=== PATIENT | male | born 1950 | race Caucasian/White ===

== ENCOUNTER 2020-06-17 11:38 | Outpatient (REF) | payer MEDICARE, SELFPAY ==
[2020-06-17 13:58] LABS: MANUAL DIFF FLAG NO
[2020-06-17 14:03] LABS: Basophils Percent Auto 0.6 % (0-2); Eosinophils Absolute Auto 0.1 X10*3/uL (0.0-0.4); Eosinophils Percent Auto 2.4 % (0-4); Hematocrit 44.8 % (42-52); Hemoglobin 15.1 g/dl (14.0-18.0); Imm Gran Abs Auto 0.03 X10*3/uL (0.00-0.03); Imm Gran Pct Auto 0.6 % (0.0-0.4); Lymphocytes Absolute Auto 1.4 X10*3/uL (1.2-4.9); Lymphocytes Percent Auto 27.2 % (20-40); Mean Corpuscular HGB Conc 33.7 g/dl (31.0-36.0); Mean Corpuscular Hemoglobin 29.3 pg (27.0-33.0); Mean Corpuscular Volume 86.8 fL (80-98); Mean Platelet Volume 11.2 fL (9.4-12.4); Monocytes Absolute Auto 0.4 X10*3/uL (0.1-1.2); Monocytes Percent Auto 7.8 % (2-11); Neutrophils Absolute Auto 3.1 X10*3/uL (2.0-8.3); Neutrophils Percent Auto 61.4 % (45-73); Platelet Count 202 X10*3/uL (160-400); Red Blood Count 5.16 X10*6/uL (4.60-5.80); Red Cell Distribution Width 12.8 % (11.0-16.0)
[2020-06-17 14:08] LABS: Glucose Urine UA NEG (NEG); Leukocyte Esterase Urine NEG (NEG); Nitrite Urine NEG (NEG); Urine Blood NEG (NEG); Urine Ketones NEG (NEG); Urine Protein NEG (NEG-TRACE)
[2020-06-17 14:09] LABS: Appearance Urine CLEAR; Color Urine YELLOW
[2020-06-17 14:34] LABS: Alanine Aminotransferase 15 U/L (0-40); Albumin Level 4.3 g/dL (3.5-5.0); Alkaline Phosphatase 51 U/L (39-117); Anion Gap 11 (12-20); Aspartate Amino Transferase 23 U/L (5-37); Bilirubin Total 1.3 mg/dL (0.0-1.0); Blood Urea Nitrogen 13 mg/dL (9-16); Carbon Dioxide 28 mmol/L (22-29); Chloride 106 mmol/L (96-108); Cholesterol 174 mg/dL; Estimated Glomerular Filt Rate > 60; Glucose Fasting 75 mg/dL (60-99); HDL Cholesterol 37 mg/dL; LDL Cholesterol Calculated 123 mg/dl; Potassium 4.7 mmol/l (3.3-5.1); Sodium 140 mmol/L (135-145); Total Protein 6.7 g/dL (6.5-8.0); Triglycerides 70 mg/dL
[2020-06-17 14:56] LABS: Prostate Specific Antigen Scr 0.52 ng/mL (<0.05-4.0)
== END 2020-06-17 11:39 | disposition home or self-care (01) ==
LOC: HO.HMGCLDS 11:38
PROVIDERS: PCP Internal Medicine; Visit Provider Internal Medicine
DX: I10 Essential (primary) hypertension (principal); R35.1 Nocturia; E78.5 Hyperlipidemia, unspecified
CPT/HCPCS: 36415; 80053; 80061; 81003; 84153; 85025

== ENCOUNTER 2020-06-18 08:15 | Day surgery (SDC) | payer MEDICARE, SELFPAY ==
[2020-06-13 12:56] VITALS: BMI 25.7
--- NOTE | 2020-06-17 11:06 | HO.ANESPROP2 ---
Documented by User: Vanessa Powell 06/17/20 11:07 HPI - Anesthesia Eval Consult details Narrative: 70yo M for Colonoscopy [facility] Past Medical History Medical History Arthritis Depression HTN (hypertension) Surgical History Surgical History History of cholecystectomy Hx of appendectomy Hx of arthroscopy of right knee Hx of colonoscopy Social History Social History Alcohol intake: current Alcohol intake frequency: a few times a month Smoking Status: Former smoker Smoking Quit Date: Use of substances other than those prescribed or required for medical reasons: No Advance Directives: No Advance Directives Information Provided: No Advance Directives on File: No Meds Allergies Allergy/AdvReac Type Severity Reaction Status Date / Time oxycodone [OXYCODONE] Allergy Unknown ITCHY, Verified 06/13/20 11:53 THROAT SWELLING Home Medications Medication Instructions Recorded Confirmed Type atenolol 1 tab PO DAILY 06/13/20 06/13/20 History citalopram 1 tab PO DAILY 06/13/20 06/13/20 History citalopram 1 tab PO DAILY 06/13/20 06/13/20 History clonidine 1 patch TOPICAL QWEEK 06/13/20 06/13/20 History lisinopril 1 tab PO DAILY 06/13/20 06/13/20 History Exam Exam Date and Time: June 17, 2020 1106 Height,Weight and Vital Signs: Height 5 ft 11 in Weight 83.915 kg Assessment and Plan Assessment Anesthesia Assessment: Chart Reviewed Documented by User: Ashia Riley 06/18/20 08:55 [facility] Past Medical History Medical History Arthritis Depression HTN (hypertension) Family History Family history of problems with anesthesia: No Surgical History Surgical History History of cholecystectomy Hx of appendectomy Hx of arthroscopy of right knee Hx of colonoscopy History of Problems with Anesthesia: No Social History Social History Alcohol intake: current Alcohol intake frequency: a few times a month Smoking Status: Former smoker Smoking Quit Date: Use of substances other than those prescribed or required for medical reasons: No Advance Directives: No Advance Directives Information Provided: No Advance Directives on File: No Meds Allergies Allergy/AdvReac Type Severity Reaction Status Date / Time oxycodone [OXYCODONE] Allergy Unknown ITCHY, Verified 06/13/20 11:53 THROAT SWELLING Home Medications Medication Instructions Recorded Confirmed Type atenolol 1 tab PO DAILY 06/13/20 06/13/20 History citalopram 1 tab PO DAILY 06/13/20 06/13/20 History citalopram 1 tab PO DAILY 06/13/20 06/13/20 History clonidine 1 patch TOPICAL QWEEK 06/13/20 06/13/20 History lisinopril 1 tab PO DAILY 06/13/20 06/13/20 History Exam Airway Mallampati Class: III TM Dist: >3cm Neck ROM: Full Loose/Missing/Broken Teeth: Yes (Poor dentition. Many broken and missing.) Heart: RRR Lungs: CTAB Assessment and Plan Assessment Anesthesia Assessment: Anesthesia Plan Discussed and Smoking Cess. Discussed Final Anesthetic Review NPO: Yes ASA Class: II Final Preanesthetic Review: No Changes in Pt Med Stat, Meds/Allgs Chart Reviewed, Consent Obtained/Reviewed and Anes Risks/Benef Reviewed Patient Risk: Low Procedure Risk: Low Anesthetic Plan Anesthetic Plan: MAC: Disposition: Standard PACU
[2020-06-18 08:25] VITALS: BP 158/103; PULSE 56; RESP 16; TEMP 36.6; O2SAT 98
[2020-06-18] MEDS: Lactated Ringers 1,000 ML 100 ML IVCONT (09:03)
[2020-06-18 10:06] VITALS: BP 143/88; PULSE 70; RESP 16; TEMP 36.4; O2SAT 99
--- NOTE | 2020-06-18 10:09 | PM.OP ---
Brief Operative Note Date of procedure: 06/18/20 Pre-op diagnosis: Screening Post-op diagnosis: other (Colon polyps, Diverticulosis, Internal hemorrhoids) Procedure: Colonoscopy to cecum and TI with biopsy and removal of polyps Surgeon: Drake Wu Anesthesia: MAC Estimated blood loss (mL): 3.0 Pathology: other (A. Cecal polyp B. Ascending colon polyp) Condition: stable Disposition: PACU
[2020-06-18 10:21] VITALS: BP 134/86; PULSE 57; RESP 13; TEMP 36.4; O2SAT 100
--- NOTE | 2020-06-18 10:44 | OP_ITS ---
SURGEON: Drake Wu MD INDICATIONS: The patient presents for evaluation of colorectal cancer screening. Full consent was obtained from him for this, including risks of bleeding and perforation. PREOPERATIVE DIAGNOSIS: Colorectal cancer screening. POSTOPERATIVE DIAGNOSIS: PROCEDURE PERFORMED: Colonoscopy to cecum and terminal ileum with biopsy and removal of polyps. ESTIMATED BLOOD LOSS: COMPLICATIONS: ANESTHESIA: Monitored anesthesia care. ASSISTANTS: SPECIMENS: POSTOPERATIVE DIAGNOSES: Colorectal cancer screening, small colon polyps, diverticulosis and internal hemorrhoids. DESCRIPTION OF PROCEDURE: The patient was placed in the left lateral decubitus position. The digital rectal exam revealed no abnormalities. The Olympus video pediatric colonoscope was entered into the rectum and advanced easily to the cecum. Once in the cecum, I did identify normal-appearing cecal pouch other than a 3 or 4 mm polyp, which was biopsied and completely removed with a cold biopsy forceps. The remainder of the cecum appeared normal. The terminal ileum was cannulated and appeared normal. The scope was withdrawn back in the colon. The scope was slowly withdrawn assessing all mucosal surfaces carefully. Preparation was excellent. In the proximal ascending colon, was a flat 3 or 4 mm polyp, which was biopsied and completely removed with a cold biopsy forceps. I did not visualize any other polyps, colitis, nor angiodysplasia. There was a mild amount of sigmoid diverticulosis. In the rectum, the scope was retroflexed, visualizing small internal hemorrhoids, but no other pathology. The rectal mucosa appeared normal. The scope was straightened out and withdrawn from the patient. He tolerated the procedure well and was returned to the recovery area in stable condition. IMPRESSION: 1. Small colon polyps, status post biopsy removal. 2. Diverticulosis. 3. Internal hemorrhoids. PLAN: The results of biopsies will be checked. If these are tubular adenoma, I would recommend a followup colonoscopy in 5 years for further screening. If they are only hyperplastic, then he may very well not need any further screening colonoscopies given his age of 70. He will otherwise see me on a p.r.n. basis. MD NORA Kuo/MICK / [phone]
== END 2020-06-18 11:10 | disposition home or self-care (01) ==
PROVIDERS: PCP Internal Medicine; Visit Provider Internal Medicine
PROC: 0DJD8ZZ Inspection of Lower Intestinal Tract, Via Natural or Artificial Opening Endoscopic (ICD-10-PCS; CPT 45378; principal; 2020-06-18 09:30)
DX: Z12.11 Encounter for screening for malignant neoplasm of colon (principal); D12.0 Benign neoplasm of cecum; D12.2 Benign neoplasm of ascending colon; K57.30 Diverticulosis of large intestine without perforation or abscess without bleeding; K64.8 Other hemorrhoids; I10 Essential (primary) hypertension; F32.9 Major depressive disorder, single episode, unspecified; Z90.49 Acquired absence of other specified parts of digestive tract; Z87.891 Personal history of nicotine dependence; Z88.8 Allergy status to other drugs, medicaments and biological substances
CPT/HCPCS: 45380; 88305

== ENCOUNTER 2020-08-21 14:23 | Outpatient (REF) | payer MEDICARE, SELFPAY ==
[2020-08-21 15:20] LABS: Influenza A PCR NEGATIVE (Negative); Influenza B PCR NEGATIVE (Negative); Resp Syncy Virus RNA Qual PCR NEGATIVE (Negative); SARS COV2 PCR INHOUSE POSITIVE (Negative)
== END 2020-08-21 14:24 | disposition home or self-care (01) ==
LOC: HO.LNP 14:23
PROVIDERS: Visit Provider Internal Medicine
DX: Z20.822 Contact with and (suspected) exposure to COVID-19 (principal); R51.9 Headache, unspecified; R50.9 Fever, unspecified
CPT/HCPCS: 0241U

== ENCOUNTER → 2021-01-15 10:22 | Outpatient (BNVA) | payer SELFPAY | PROVIDERS: PCP Internal Medicine; Visit Provider Internal Medicine | DX: Z02.79 Encounter for issue of other medical certificate (principal) ==

== ENCOUNTER 2022-01-22 06:40 | Outpatient (REF) | payer MEDICARE, SELFPAY ==
[2022-01-22 11:29] LABS: Appearance Urine CLEAR; Color Urine YELLOW; Glucose Urine UA NEG (NEG); Leukocyte Esterase Urine NEG (NEG); Nitrite Urine NEG (NEG); PH 6.5 (5.0-8.0); Urine Blood NEG (NEG); Urine Ketones NEG (NEG); Urine Protein NEG (NEG-TRACE)
[2022-01-22 11:37] LABS: MANUAL DIFF FLAG NO
[2022-01-22 12:08] LABS: Eosinophils Absolute Auto 0.1 X10*3/uL (0.0-0.4); Eosinophils Percent Auto 3.2 % (0-4); Hematocrit 43.3 % (42.0-52.0); Hemoglobin 14.5 g/dl (14.0-18.0); Imm Gran Abs Auto 0.03 X10*3/uL (0.00-0.03); Imm Gran Pct Auto 0.7 % (0.0-0.4); Lymphocytes Absolute Auto 1.1 X10*3/uL (1.2-4.9); Lymphocytes Percent Auto 26.8 % (20-40); Mean Corpuscular HGB Conc 33.5 g/dl (31.0-36.0); Mean Corpuscular Hemoglobin 28.9 pg (27.0-33.0); Mean Corpuscular Volume 86.3 fL (80.0-98.0); Mean Platelet Volume 11.3 fL (9.4-12.4); Monocytes Absolute Auto 0.3 X10*3/uL (0.1-1.2); Monocytes Percent Auto 7.6 % (2-11); Neutrophils Absolute Auto 2.5 x10*3/uL (2.0-8.3); Neutrophils Percent Auto 60.7 % (45-73); Platelet Count 200 X10*3/uL (160-400); Red Blood Count 5.02 X10*6/uL (4.60-5.80); White Blood Count 4.1 X10*3/uL (4.8-10.8)
[2022-01-22 12:16] LABS: Alanine Aminotransferase 18 U/L (0-40); Albumin Level 4.1 g/dL (3.5-5.0); Alkaline Phosphatase 46 U/L (39-117); Anion Gap 10 (12-20); Aspartate Amino Transferase 20 U/L (5-37); Bilirubin Total 0.9 mg/dL (0.0-1.0); Blood Urea Nitrogen 17 mg/dL (9-16); Calcium 9.4 mg/dL (8.4-10.2); Carbon Dioxide 26 mmol/L (22-29); Chloride 108 mmol/L (96-108); Cholesterol 193 mg/dL; Estimated Glomerular Filt Rate > 60; Glucose Fasting 103 mg/dL (60-99); HDL Cholesterol 38 mg/dL; LDL Cholesterol Calculated 139 mg/dl; Potassium 4.5 mmol/L (3.3-5.1); Sodium 139 mmol/L (135-145); Total Protein 6.6 g/dL (6.5-8.0); Triglycerides 80 mg/dL
[2022-01-22 12:41] LABS: Prostate Specific Antigen Scr 0.46 ng/mL (<0.05-4.0)
== END 2022-01-22 06:41 | disposition home or self-care (01) ==
LOC: HO.HMGCLDS 06:40
PROVIDERS: PCP Internal Medicine; Visit Provider Internal Medicine
DX: I10 Essential (primary) hypertension (principal); E78.00 Pure hypercholesterolemia, unspecified; R35.1 Nocturia; Z12.5 Encounter for screening for malignant neoplasm of prostate
CPT/HCPCS: 36415; 80053; 80061; 81003; 84153; 85025

== ENCOUNTER → 2023-10-28 07:39 | Outpatient (REF) | payer MEDICARE, SELFPAY ==
--- NOTE | 2023-10-28 07:47 | CA_ITS ---
Acquisition Time: 2023-10-28 08:03:44 Total Exercise Time: 00:11:01 Test Indications: CP Medications: SEE H Protocol: ROEL Max HR: 129 BPM 87% of Pred: 148 BPM Max BP: 170/090 mmHG Max Work Load: 13.4 METS PT EXERCISED ON STD ROEL PROTOCOL FOR 11 MIN INTO STAGE 4. MAX HR 129-87%MAX. 3/10 CHEST PRESSURE WITH PEAK EXERCISE. RESOLVED BY 6 MIN OF RECOVERY.. NML BP RESPONSE. CLINICALLY EQUIVOCAL, ELEC NEG. Referred By: Salo Oleary Overread By: MARGUERITE OLEARY MD
== END ==
LOC: HO.CARD 07:39
PROVIDERS: PCP Internal Medicine; Visit Provider Internal Medicine
DX: R07.9 Chest pain, unspecified (principal)
CPT/HCPCS: 93017

== ENCOUNTER 2024-02-13 10:07 | Outpatient (AMB) | payer MEDICARE, SELFPAY ==
--- NOTE | 2024-02-13 10:08 | MHC.OFFVIS ---
Vital Signs 02/13/24 10:10 Height 5 ft 11 in Weight 180 lb 5.41 oz BMI 25.1 Blood Pressure Location Lt brachial Position Sitting Intake Visit Reasons: [employer]/Dr. aLzar/Exertional chest pain Intake Note: [employer]. Pt states is having some chest discomfort. Approx 10 minutes. 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 He has a pleasant 73-year-old male since last 4-5 months been having symptoms of exertional chest discomfort. Describes a pressure in his chest in the retrosternal area when he is mowing his lawn. The associated with lightheadedness. He has to stop mowing his lawn and rest and symptoms subsided within 5-10 minutes. He then can proceed with mowing his lawn again and would get symptoms similar again. The symptoms have been more or less consistent with exertional activity. He also describes left-sided chest pain which is not similar to his retrosternal chest pressure but is present mostly at rest. He has concerned about the symptoms. This has limited his exercise activity and his functionality. He underwent a stress test in October very performed high level of workload with symptoms similar to his angina but without any EKG changes of ischemia. His peak blood pressure at that time was 170/90. He is noted occasionally his blood pressure to be elevated at home. Although blood pressure are highly variable. He does have family history of coronary artery disease with father having NM at age 71. He also has history of hyperlipidemia with last LDL of 139 mg/dL. He has never had any prior vascular events including myocardial infarction. Ex-smoker does not currently smoke. Denies any lightheadedness or syncope without these activity. Denies any prolonged palpitation irregular heartbeat. No heart failure symptoms. [facility] Medical History Arthritis Depression HTN (hypertension) Surgical History Hx of appendectomy History of cholecystectomy Hx of arthroscopy of right knee Hx of colonoscopy Family History Father Heart problem Social History Alcohol intake: current Alcohol intake frequency: a few times a month Patient Tobacco Use Status: Former Tobacco user Review of Systems Const Reports chills, Reports daytime sleepiness, Reports fatigue, Reports fever(s), Reports frequent falls, Reports poor appetite, Reports snoring, Reports stops breathing during sleep, Reports weakness, Reports weight gain and Reports weight loss Eyes Reports loss of vision ENT Reports dizziness and Reports hearing loss Card Reports chest pain, Reports claudication, Reports leg edema, Reports lightheadedness, Reports palpitations, Reports dyspnea, Reports dyspnea on exertion and Reports orthopnea Resp Reports cough, Reports excessive phlegm production, Reports dyspnea, Reports dyspnea on exertion, Reports snoring and Reports wheezing GI Reports abdominal pain, Reports hematochezia, Reports change in bowel habits, Reports nausea and Reports vomiting Reports dysuria and Reports urinary frequency Musc Reports arthralgias, Reports muscle weakness and Reports numbness Skin/Breast Reports nail changes and Reports rash Neuro Reports Abnormal speech present, Reports dizziness, Reports frequent falls, Reports loss of vision, Reports memory loss, Reports numbness and Reports weakness Psych Reports depression and Reports memory loss Endo Reports fatigue and Reports palpitations Bc/Lymph Reports easy bruising Aller/Immun Reports wheezing Physical Exam Vital Signs: BMI result Body Mass Index 25.1 Const General: cooperative, comfortable, no acute distress, alert, awake and Physically active Nutritional Appearance: average body habitus Orientation/consciousness: patient oriented x3 Limitations: no limitations HEENT Head: Yes normocephalic and Yes atraumatic Neck Neck: Yes trachea midline, Yes supple and Yes no JVD Resp Effort & Inspection: normal respiratory effort Auscultation: clear to auscultation bilaterally Cardio Jugular venous distension: no JVD Palpation: normal PMI Rate: regular rate Rhythm: regular rhythm Heart sounds: S1 normal heart sound present, S2 normal heart sound present, no click, no gallops, no murmurs and no rubs GI Auscultation: normal bowel sounds Skin General skin exam: no rashes or lesions noted Neuro General: patient oriented x3 and no focal motor deficits Speech: Abnormal speech present Extrem General: Yes no clubbing, cyanosis or edema Psych Appearance: grossly normal Office Procedures EKG Details: EKG shows sinus bradycardia at 58 beats per minute with normal EKG [id number], Complete Assessment & Plan Assessment & Plan (1) Exertional chest pain: Code(s): R07.9 - Chest pain, unspecified Category: Medical Plan: Exertional chest pain in this elderly gentleman with multiple risk factors including age, hypertension, family history, hyperlipidemia are highly suggestive of obstructive coronary artery disease although his stress test done in early October was at high workload with symptoms were positive with negative EKG. Possibility of branch vessel or circumflex disease. However symptoms are concerning and limiting his lifestyle. Would suggest further evaluation with angiographic method. We suggested noninvasive versus invasive angiography. Will pursue coronary CTA for further evaluation of coronary artery disease. Other differential diagnose include exercise-induced hypertension and noticed to have elevated blood pressure today and/or pulmonary hypertension and/or left ventricular hypertrophy. Will obtain echocardiogram in near future. Meanwhile start him on low-dose amlodipine both as an antianginal antihypertensive therapy. Also recommend statin therapy with atorvastatin 40 mg daily to target goal LDL less than 70 mg/dL and low-dose aspirin therapy. Further treatment based on the findings of the coronary CTA. (2) HTN (hypertension): Code(s): I10 - Essential (primary) hypertension Category: Medical Plan: Hypertension with today noted to have elevated blood pressure. Possibly can cause exertional angina with elevated blood pressure with exertional activity. Advised to continue monitor blood pressure at home maintain a log. Will start on low-dose amlodipine for control his blood pressure. Low-salt diet was discussed. Advised stress mitigation strategies. Target goal blood pressure less than 130/84 at all times. Follow up in the clinic after testing. Thank you for allowing me to partake in his care Orders: Orders Basic Metabolic Panel Today R07.9 - Chest pain, unspecified CT Cardiac Coronary Angio 1 Week R07.9 - Chest pain, unspecified CA echo transthoracic complete Today R07.9 - Chest pain, unspecified Medications: New aspirin (Ecotrin Low Strength) 81 mg PO DAILY 30 tabs 5RF R07.9 - Chest pain, unspecified amlodipine 2.5 mg PO DAILY 30 tabs 5RF R07.9 - Chest pain, unspecified atorvastatin 40 mg PO DAILY 30 tabs 5RF R07.9 - Chest pain, unspecified Coding Level of Care Code New Pt Level 4 (48186) Diagnoses Exertional chest pain R07.9 HTN (hypertension) I10 CPT Codes EKG - CPT: 87080-[id number], Complete ([id number])
[2024-02-13 10:10] VITALS: BMI 25.1
== END 2024-02-13 10:40 | disposition home or self-care (01) ==
PROVIDERS: PCP Internal Medicine; Visit Provider Internal Medicine Cardiovascular Disease
DX: R07.9 Chest pain, unspecified (principal); I10 Essential (primary) hypertension
CPT/HCPCS: 93010; 99204

== ENCOUNTER 2024-02-13 10:07 | Outpatient (REF) | payer MEDICARE, SELFPAY ==
[2024-02-13 12:37] LABS: Anion Gap 11 (12-20); Blood Urea Nitrogen 15 mg/dL (9-16); Calcium 10.2 mg/dL (8.4-10.2); Carbon Dioxide 27 mmol/L (22-29); Chloride 108 mmol/L (96-108); Estimated Glomerular Filt Rate > 60; Glucose Random 97 mg/dL (60-115); Potassium 5.1 mmol/L (3.3-5.1); Sodium 141 mmol/L (135-145)
== END 2024-02-13 10:08 | disposition home or self-care (01) ==
LOC: HO.LAB 10:07
PROVIDERS: PCP Internal Medicine; Visit Provider Internal Medicine Cardiovascular Disease
DX: R07.9 Chest pain, unspecified (principal); I10 Essential (primary) hypertension
CPT/HCPCS: 36415; 80048; 93005; 99202

== ENCOUNTER → 2024-03-02 13:31 | Outpatient (REF) | payer MEDICARE, SELFPAY ==
--- NOTE | 2024-03-02 13:44 | CA_ITS ---
Transthoracic Echocardiogram Patient (Last, First, Middle): Kiko Hankins R Gender: Male Date of : 1950 Age: 74 Procedure Date: 03/02/2024 Procedure Type: Transthoracic Echocardiogram Location: OP Height: 180.34 cm Weight: 81.65 kg BSA: 2.02 m2 Heart Rate: 54 bpm BP: 130 / 84 mmHg Platinum Smith: NICHO Referring MD: Arnulfo Beverly MD Lpn Private Duty: Arnulfo Beverly MD Symptoms: R07.9 - Chest pain, unspecified Study Quality: Adequate ECG Rhythm: Bradycardia Conclusions: - 1. Normal LV ejection fraction of 65-70% with grade 1 diastolic dysfunction 2. Trivial aortic regurgitation 3. Mildly dilated ascending aorta at 3.7 cm 4. Normal RV systolic pressure 5. No gross pericardial effusion Findings Left Ventricle Normal left ventricular size, thickness, and systolic function. The visually estimated ejection fraction is between 65-70%. Spectral Doppler is indicative of an impaired relaxation filling pattern. E/E prime ratio is <8, consistent with normal filling pressures. Evidence suggests grade I (mild) diastolic dysfunction. Right Ventricle Normal right ventricular cavity size and systolic function. Atria The left atrium is normal in size. Interatrial shunt cannot be excluded. The right atrium is normal in size. Aortic Valve Normal aortic valve structure and function. There is no aortic valve stenosis. There is trace (trivial) aortic valve regurgitation. Mitral Valve Normal mitral valve structure and function. There is trace mitral valve regurgitation. There is no mitral valve stenosis. Pulmonic Valve The pulmonic valve is likely normal. There is trace pulmonic valve regurgitation. Tricuspid Valve Normal tricuspid valve structure. There is trace tricuspid valve regurgitation. The right ventricular systolic pressure is normal. The right ventricular systolic pressure is 20 mmHg. Normal right atrial pressure. There is no evidence of pulmonary hypertension. Great Vessels The pulmonary artery was not well visualized. There is mild dilatation of the ascending aorta measuring 3.70 cm. Venous The inferior vena cava is normal in size and collapses greater than 50% with inspiration. Pericardium/Pleural There is no evidence of pericardial effusion. Prior Study Comparison No prior study available for comparison. Measurements 2D Linear Measurements IVSd: 0.91 0.6-0.9/0.6-1.0 cm LVIDd: 5.43 3.9-5.3/4.2-5.9 cm LVIDd Index: 2.69 2.4-3.2/2.2-3.1 cm/m2 LVIDs: 3.52 2.0-3.6 cm LVPWd: 0.60 0.7-1.1 cm LA Diam: 3.40 2.7-3.8/3.0-4.0 cm LAIDs Index: 1.68 1.5-2.3 cm/m2 LV Mass: 181.12 67-162/88-224 g LV Mass Index: 89.66 43-95/49-115 g/m2 LVOT Diam: 1.90 3.0+(-)1.3 cm 2D Systolic Function EF 2C: 62.70 >55% Mitral Valve MV Pk E: 0.71 MV PK A: 0.84 MV Decel Time: 234.00 E/A: 0.80 E'Lateral: 8.81 E'Medial: 7.18 E/E' Med: 9.90 E/E' Lat: 8.10 PHT: 69.00 MVA PHT: 3.19 Decel Anson: 3.04 Aortic Valve AoV Pk Caleb: 1.40 AoV Pk Grad: 8.00 BRODIE: 2.64 LVOT LVOT Pk Caleb: 1.30 LVOT Mn Caleb: 0.84 LVOT VTI: 0.28 LVOT Pk Grad: 7.00 LVOT Mn Grad: 3.00 LVOT Diam: 1.90 LVOT Area: 2.84 Diastolic Function MV Pk E: 0.71 MV Pk A: 0.84 E/A: 0.80 E'Medial: 7.18 E/E' Med: 9.90 E' Laterial: 8.81 E/E' Lat: 8.10 Right Ventricle TAPSE (mm): 23.00 TVS' Caleb: 10.60 Tricuspid Valve TR Pk Caleb: 2.04 TR Pk Grad: 17.00 RA Press: 3.00 RVSP: 20.00 Great Vessels Aorta Sinus of Valsalva: 3.70 2.0-3.5 cm Ao Asc: 3.70 2.1-3.4 cm Pulmonary Veins Pulm Vein S/D 1.10 Pulmonary Valve PV Pk Caleb: 0.77 Peak PV Grad: 2.00 Updated in Other Vendor System with Status of Final Arnulfo Beverly MD electronically signed on 03/03/2024 12:34:05 PM with status of Final
== END ==
LOC: HO.CARD 13:31
PROVIDERS: PCP Internal Medicine; Visit Provider Internal Medicine Cardiovascular Disease
DX: R07.9 Chest pain, unspecified (principal)
CPT/HCPCS: 93306

== ENCOUNTER → 2024-03-02 13:44 | Outpatient (BNV) | payer MEDICARE, SELFPAY | PROVIDERS: PCP Internal Medicine; Visit Provider Internal Medicine Cardiovascular Disease | DX: I35.1 Nonrheumatic aortic (valve) insufficiency (principal); I51.89 Other ill-defined heart diseases | CPT/HCPCS: 93306 ==

== ENCOUNTER 2024-12-17 14:33 | Outpatient (AMB) | payer MEDICARE, SELFPAY ==
--- NOTE | 2024-12-17 14:57 | MHC.PC.OV ---
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 Accompanied by: Self / Same As Patient Allergies oxycodone [OXYCODONE] Allergy (Unknown, Verified 12/17/24 14:59) ITCHY, THROAT SWELLING Tobacco use date assessed: 12/17/24 Fall risk assessment: No Falls in past year Last assessed Fall Risk: 12/17/24 Dental Screening Dental Screen Date: 12/17/24 Did you have a dental visit in the last 12 months?: No Did you have a dental problem in the last 6 months where you did not have access to dental care?: No Was dental information given to patient?: Patient declined (Does not have a dentist) [facility] Medical History Arthritis Depression HTN (hypertension) Surgical History Hx of appendectomy History of cholecystectomy Hx of arthroscopy of right knee Hx of colonoscopy (~06/18/20) Family History (Updated 12/17/24 @ 15:03 by CHEVY Delgado) Father Heart problem Mother Colon cancer Social History (Updated 12/17/24 @ 15:03 by CHEVY Delgado) Housing: House Alcohol intake: current Alcohol intake frequency: a few times a month Patient Tobacco Use Status: Former Tobacco user service: No Current occupational status: retired Cognitive needs: No Hearing needs: Yes (bilateral) Vision needs: Yes ([place]) Questionnaire PHQ-9 Over the last 2 weeks, how often have you been bothered by any of the following problems? 1. Little interest or pleasure in doing things: not at all 2. Feeling down, depressed, or hopeless: not at all 3. Trouble falling or staying asleep, or sleeping too much: not at all 4. Feeling tired or having little energy: not at all 5. Poor appetite or overeating: not at all 6. Feeling bad about yourself - or that you are a failure or have let yourself or your family down: not at all 7. Trouble concentrating on things, such as reading the newspaper or watching television: not at all 8. Moving or speaking so slowly that other people could have noticed. Or the opposite - being so fidgety or restless that you have been moving around a lot more than usual: not at all 9. Thoughts that you would be better off or of hurting yourself in some way: not at all Total score: 0 Depression Screening Interpretation: Negative Depression Screening Done: Yes Source: Developed by Drs. Drake Mora, Veda Lema, Matheus Mora and colleagues, with an educational karen from [employer]. Thrive Questionnaire Date Thrive assessed: 12/17/24 I am a: Patient What is your living situation today?: I have a steady place to live Within the past 12 months, did the food you bought not last and you didn't have the money to get more?: Never true Within the past 12 months, did you worry whether your food would run out before you got money to buy more?: Never true Do you have trouble paying for medicines?: No Do you have trouble getting transportation to medical appointments?: No Do you have trouble paying your heating and electricity bill?: No Do you have trouble taking care of your child, family member or friend?: No Do you have trouble with day-to-day activities such as bathing, preparing meals, shopping, managing finances, etc.?: No Are you currently unemployed and looking for a job?: No Are you interested in more education?: No Please select the resources that you would like help with: None THRIVE Score: 0 AUDIT C Alcohol Use Questionnaire (AUDIT-C) 1. How often do you have a drink containing alcohol?: Monthly or less 2. How many drinks containing alcohol do you have on a typical day when you are drinking?: 1 or 2 Total Score: 1 DOMONIQUE-7 AMB Questionnaire DOMONIQUE-7 Date DOMONIQUE - 7 assessed: 12/17/24 Feeling nervous, anxious, or on edge: 0 = Not at all Not being able to stop or control worryin = Not at all Worrying too much about different things: 0 = Not at all Trouble relaxin = Not at all Being so restless that it is hard to sit still: 0 = Not at all Becoming easily annoyed or irritable: 0 = Not at all Feeling afraid as if something awful might happen: 0 = Not at all Total DOMONIQUE-7 score (0-4 normal; 5-9 mild; 10-14 moderate; 15-21 severe): 0 Source: Developed by Drs. Drake Mora, Veda Lema, Matheus Mora and colleagues, with an educational karen from [employer]. Physical exam (Primary Care) Vital Signs: Last Vital Signs Pulse 48 L 12/17/24 15:04 Resp 18 12/17/24 15:04 BP 140/96 H 12/17/24 15:04 Pulse Ox 96 12/17/24 15:04 Oxygen Delivery Method Room Air 12/17/24 15:04 Next steps: Atenolol dosage has been increased BMI result Body Mass Index 23.7 Tobacco/Smoking Status: Tobacco use Status Tobacco use date assessed 12/17/24 12/17/24 15:07 Patient Tobacco Use Status Former Tobacco user 12/17/24 15:03 PHQ-9: PHQ-9 Score PHQ-9: Total score 0 12/17/24 15:08 Depression Screening Interpretation: Negative Thrive Assessment: Date of Thrive Assessment Date Thrive assessed 12/17/24 12/17/24 15:07 Forms completed: Health Care Proxy Time spent: 1-15 minutes, on File Actual minutes spent: 5 Coding Level of Care Code New Pt Level 4 (74468) Complex EM visit Add On G2211 Diagnoses HTN (hypertension) I10 Hyperlipidemia E78.5 Additional Codes Vital Signs *Quality* - Time spent: 1-15 minutes, on File ([id number]) Assessment & Plan Assessment & Plan (1) HTN (hypertension): Code(s): I10 - Essential (primary) hypertension Category: Medical Plan: Blood pressure medication, dosage was increased (2) Hyperlipidemia: Code(s): E78.5 - Hyperlipidemia, unspecified Category: Medical Plan: Will call with blood work results Plan History of Present Illness The patient is a 74-year-old male presenting with a follow-up appointment for blood pressure management. He reports elevated blood pressure despite being on a regimen that includes clonidine, metoprolol, and atenolol. Currently, he takes 25 mg of atenolol, which is not controlling his blood pressure, and there were considerations to increase this dosage. His past medication lisinopril was referenced but not detailed further in efficacy or continuation. He monitors his daily activities closely, with minor symptoms of breathlessness upon strenuous exertion. Additionally, the patient mentions arthritis as part of his chronic condition landscape. 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 - Family: ; does not live alone. - Substance Use: Quit smoking 35 years ago, consumes alcohol occasionally. - Functional Status: Independent in activities of daily living, including driving and grocery shopping. - Housing: Not explicitly mentioned but implied to reside with family. Review of Systems - Cardiovascular: Reports elevated blood pressure; denies additional heart-related symptoms. - Musculoskeletal: Reports arthritis. - Respiratory: Denies major issues but reports breathless if exertion is excessive. - Genitourinary: Denies trouble with urination. - Sleep: Reports adequate sleep habits, sleeps flat on his side. - General: Denies other concerning symptoms. Physical Exam General: Cooperative and healthy appearing Nutritional Appearance: Well nourished Orientation/consciousness: Patient oriented x3 Limitations: No limitations Head: Normal to inspection General: Appearance normal, both eyes and all related structures Neck: Normal visual inspection Chest: Normal palpation of entire chest wall Respiratory: Short winded if does too much ormal respiratory effort Neurology: Patient oriented x3 Results Plan 1. Essential Hypertension - Increase atenolol dosage to 50 mg. - Continue clonidine patch, metoprolol. - Prescriptions and refills managed. 2. Osteoarthritis - Continue current management plan. - Advise on activity moderation. Discussion Notes During our session, I informed the patient about increasing the atenolol dosage to help manage his blood pressure. This change might help achieve more consistent control, thus reducing risks related to high blood pressure. I ensured to explain the benefits of enhanced control and cautioned the patient about the potential side effects such as dizziness or fatigue due to the higher dose. Sildenafil usage for erectile dysfunction was discussed, and I confirmed the prescription will be sent to the desired pharmacy. We have planned routine blood work to monitor and provide feedback on his current treatment regimen. Instructions were provided on where to attain the tests, and our next follow-up was scheduled for six months. Throughout the conversation, the patient confirms that he understands the instructions and his responsibilities in monitoring his condition at home. Patient Instructions - Take atenolol as prescribed, 50 mg daily. - Continue using the clonidine patch and metoprolol. - Monitor your blood pressure at home regularly and report significant changes. - Obtain routine fasting blood work as advised at the hospital. - Continue your daily activities but rest if you feel short of breath. - Follow up in six months, or sooner if you notice changes in symptoms. - Ensure to take sildenafil as discussed for erectile dysfunction, with the pharmacy noted. - Contact your healthcare provider with any questions or concerns. Orders: Orders Complete Blood Count no Diff Today E78.5 - Hyperlipidemia, unspecified, I10 - Essential (primary) hypertension, R07.9 - Chest pain, unspecified Lipid Panel Today E78.5 - Hyperlipidemia, unspecified, I10 - Essential (primary) hypertension, R07.9 - Chest pain, unspecified Thyroid Stimulating Hormone Today E78.5 - Hyperlipidemia, unspecified, I10 - Essential (primary) hypertension, R07.9 - Chest pain, unspecified Basic Metabolic Panel Today E78.5 - Hyperlipidemia, unspecified, I10 - Essential (primary) hypertension, R07.9 - Chest pain, unspecified Lipase Today E78.5 - Hyperlipidemia, unspecified, I10 - Essential (primary) hypertension, K85.90 - Acute pancreatitis without necrosis or infection, unspecified, R07.9 - Chest pain, unspecified Liver Panel Today E78.5 - Hyperlipidemia, unspecified, I10 - Essential (primary) hypertension, R07.9 - Chest pain, unspecified UA and rflx microscopic Today E78.5 - Hyperlipidemia, unspecified, I10 - Essential (primary) hypertension, R07.9 - Chest pain, unspecified Medications: New atenolol 50 mg PO DAILY 90 tabs 1RF sildenafil administer 30 minutes to 4 hours before activity 25 mg PO DAILY PRN 10 tabs 0RF erectile dysfunction sildenafil administer 30 minutes to 4 hours before activity 25 mg PO DAILY PRN 10 tabs 0RF erectile dysfunction Changed From lisinopril 1 tab PO DAILY To lisinopril 40 mg PO DAILY 90 tabs 1RF
[2024-12-17 15:04] VITALS: BP 140/96; PULSE 48; RESP 18; O2SAT 96; BMI 23.7
== END 2024-12-17 15:15 | disposition home or self-care (01) ==
LOC: HO.HMCHD 14:34
PROVIDERS: PCP Internal Medicine; Visit Provider Internal Medicine
DX: I10 Essential (primary) hypertension (principal); E78.5 Hyperlipidemia, unspecified; Z00.00 Encounter for general adult medical examination without abnormal findings

== ENCOUNTER → 2024-12-17 14:33 | Outpatient (BNVA) | payer MEDICARE, SELFPAY | PROVIDERS: PCP Internal Medicine; Visit Provider Internal Medicine | DX: I10 Essential (primary) hypertension (principal); E78.5 Hyperlipidemia, unspecified | CPT/HCPCS: 96127; 99202 ==

== ENCOUNTER 2025-06-19 14:47 | Outpatient (AMB) | payer MEDICARE, SELFPAY ==
[2025-06-19 14:21] VITALS: BP 138/79; PULSE 51; TEMP 36.7; O2SAT 96; BMI 24.6
--- NOTE | 2025-06-19 14:21 | A.OFFPC_ITS ---
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 Accompanied by: Self / Same As Patient Allergies oxycodone (OXYCODONE) Allergy (Unknown, Verified 06/19/25 14:21) ITCHY, THROAT SWELLING Medication List - Last Reconciled 06/20/25 by ESTELLE Cage atenolol 50 mg PO DAILY clonidine 1 patch topical QWEEK lisinopril 40 mg PO DAILY sildenafil 25 mg PO DAILY PRN Tobacco use date assessed: 06/19/25 Fall risk assessment: No Falls in past year Last assessed Fall Risk: 06/19/25 Dental Screening Dental Screen Date: 06/19/25 Did you have a dental visit in the last 12 months?: No Did you have a dental problem in the last 6 months where you did not have access to dental care?: No HPI HPI Comments History of Present Illness Details The patient is a 75-year-old male with HTN, HLD and ED presenting to establish care and for a follow-up visit to manage chronic conditions. He has a history of hypertension, which is managed with atenolol 50mg a clonidine patch, and lisinopril 40mg, with good blood pressure control noted today. His BP today was 138/79. A conservation technician previously recommended cholesterol medication based on the patient's age; however, his prior primary care physician disagreed, noting that his cholesterol levels were good. The patient does not have other risk factors such as diabetes or a history of smoking. He is averse to taking numerous medications. The patient reports having arthritis in his knees, hips, and back, which he manages with Tylenol as needed with good effect. He previously took Vioxx, which he found effective before it was removed from the market. He uses sildenafil as needed for erectile dysfunction without any issues or chest pain. He reports experiencing heartburn about twice a week, which is relieved by taking peppermint. He also notes that his feet get cold easily, but his circulation was previously checked and found to be good. Relevant medical history includes hearing aid use for about a year and cataract surgery approximately a year ago. The patient reports his father had heart problems. He is due for labs and Colonoscopy. [facility] Medical History (Updated 06/20/25 @ 09:47 by ESTELLE Cage) Arthritis Depression Erectile dysfunction HTN (hypertension) Medication management Surgical History History of cholecystectomy Hx of appendectomy Hx of arthroscopy of right knee Hx of colonoscopy (~06/18/20) Family History (Updated 06/19/25 @ 14:57 by Dana Gonzalez MA) Father Heart problem Mother Colon cancer Social History Housing: House Alcohol intake: current Alcohol intake frequency: a few times a month Patient Tobacco Use Status: Former Tobacco user e-Cigarette/Vaping Use: Former Use service: No Current occupational status: retired Cognitive needs: No Hearing needs: Yes (bilateral) Vision needs: Yes ([place]) Questionnaire PHQ-9 Over the last 2 weeks, how often have you been bothered by any of the following problems? 1. Little interest or pleasure in doing things: not at all 2. Feeling down, depressed, or hopeless: not at all 3. Trouble falling or staying asleep, or sleeping too much: not at all 4. Feeling tired or having little energy: not at all 5. Poor appetite or overeating: not at all 6. Feeling bad about yourself - or that you are a failure or have let yourself or your family down: not at all 7. Trouble concentrating on things, such as reading the newspaper or watching television: not at all 8. Moving or speaking so slowly that other people could have noticed. Or the opposite - being so fidgety or restless that you have been moving around a lot more than usual: not at all 9. Thoughts that you would be better off or of hurting yourself in some way: not at all Total score: 0 Depression Screening Interpretation: Negative Depression Screening Done: Yes Source: Developed by Drs. Drake Mora, Veda Lema, Matheus Mora and colleagues, with an educational karen from [employer]. Thrive Questionnaire Date Thrive assessed: 06/19/25 I am a: Patient Within the past 12 months, did the food you bought not last and you didn't have the money to get more?: Never true Within the past 12 months, did you worry whether your food would run out before you got money to buy more?: Never true Do you have trouble paying for medicines?: No Do you have trouble getting transportation to medical appointments?: No Do you have trouble paying your heating and electricity bill?: No Do you have trouble taking care of your child, family member or friend?: No Do you have trouble with day-to-day activities such as bathing, preparing meals, shopping, managing finances, etc.?: No Are you currently unemployed and looking for a job?: No Are you interested in more education?: No THRIVE Score: 0 AUDIT C Alcohol Use Questionnaire (AUDIT-C) 1. How often do you have a drink containing alcohol?: Never 3. How often do you have six or more drinks on one occasion?: Never Total Score: 0 DOMONIQUE-7 AMB Questionnaire DOMONIQUE-7 Date DOMONIQUE - 7 assessed: 06/19/25 Feeling nervous, anxious, or on edge: 0 = Not at all Not being able to stop or control worryin = Not at all Worrying too much about different things: 0 = Not at all Trouble relaxin = Not at all Being so restless that it is hard to sit still: 0 = Not at all Becoming easily annoyed or irritable: 0 = Not at all Feeling afraid as if something awful might happen: 0 = Not at all Total DOMONIQUE-7 score (0-4 normal; 5-9 mild; 10-14 moderate; 15-21 severe): 0 Source: Developed by Drs. Drake Mora, Veda Lema, Matheus Mora and colleagues, with an educational karen from [employer]. Review of Systems Narrative - HEENT: Reports hearing loss, corrected with hearing aids for about one year. Denies vision problems since cataract surgery. - Cardiovascular: Denies chest pain or other issues with sildenafil use. - Respiratory: Denies shortness of breath and cough. - Gastrointestinal: Reports heartburn about twice a week. Denies constipation and diarrhea. - Musculoskeletal: Reports arthritis pain in his knees, hips, back, and neck. - Extremities: Reports his feet get cold easily. Physical exam (Primary Care) Vital Signs: Last Vital Signs Temp 98.1 F 06/19/25 14:21 Pulse 51 06/19/25 14:21 BP 138/79 06/19/25 14:21 Pulse Ox 96 06/19/25 14:21 Oxygen Delivery Method Room Air 06/19/25 14:21 BMI result Body Mass Index 24.6 GENERAL Well developed, Well nourished, in no apparent distress HEENT Head-Normocephalic Eyes- PERRLA, EOMI, Conjuctiva clear, lids WNL Ears- Canals clear, TMs WNL Mouth/Throat-No lesions, no erythema, no exudate Neck- Supple, No lymphadenopathy, thyroid WNL RESPIRATORY Normal I:E, Clear to auscultation CARDIOVASCULAR Regular, rate and rhythm, No murmurs or rubs, peripheral pulses 2+ and symmetrical GASTROINTESTINAL Soft, nontender, normal bowel sounds, no masses MUSCULOSKELETAL Back- nontender Joints- no swelling or deformity NEUROLOGICAL Gait normal PSYCHIATRIC Oriented to person, place and time Mood and affect WNL Appearance WNL Speech WNL Thought processes WNL Tobacco/Smoking Status: Tobacco use Status Tobacco use date assessed 06/19/25 06/19/25 14:22 Patient Tobacco Use Status Former Tobacco user 06/19/25 14:22 e-Cigarette/Vaping Use Former Use 06/19/25 14:22 PHQ-9: PHQ-9 Score PHQ-9: Total score 0 06/19/25 14:58 Depression Screening Interpretation: Negative Thrive Assessment: Date of Thrive Assessment Date Thrive assessed 06/19/25 06/19/25 14:22 Coding Level of Care Code Established Pt Est Pt Level 4 (75399) Established Pt Complex EM visit Add On G2211 Patient Type Established Diagnoses Primary hypertension I10 Hypertension type: primary hypertension Hyperlipidemia, unspecified hyperlipidemia type E78.5 Hyperlipidemia type: unspecified Erectile dysfunction N52.9 Arthritis M19.90 Time Spent (min) 30 Comment Time spent on chart review, medication reconciliation, H&P, patient education and orders. Assessment & Plan Assessment & Plan (1) HTN (hypertension): Comment: BP today was 138/79 Code(s): I10 - Essential (primary) hypertension Category: Medical Qualifiers: Hypertension type: primary hypertension Qualified Code(s): I10 - Essential (primary) hypertension Plan: The patient's blood pressure is well-controlled on his current regimen of atenolol, clonidine patch, and lisinopril. He will continue with these medications without changes. Patient will continue current medications. Will monitor. Patient will follow up in 6 months. (2) Hyperlipidemia: Code(s): E78.5 - Hyperlipidemia, unspecified Category: Medical Qualifiers: Hyperlipidemia type: unspecified Qualified Code(s): E78.5 - Hyperlipidemia, unspecified Plan: The patient is not on cholesterol medication despite a previous recommendation from a conservation technician. His former PCP advised against it as his cholesterol was normal, and he lacks other cardiovascular risk factors like diabetes or smoking. The plan is to check fasting labs, including cholesterol, but not to initiate statin therapy at this time. (3) Erectile dysfunction: Code(s): N52.9 - Male erectile dysfunction, unspecified Category: Medical Plan: Patient is taking Sildenafil with good results. Patient will continue current medications. Will monitor. Patient will follow up in 6 months. (4) Arthritis: Comment: hips,knees Code(s): M19.90 - Unspecified osteoarthritis, unspecified site Category: Medical Plan: The patient manages his arthritis pain in the knees, hips, and back effectively with Tylenol. He is advised to continue using Tylenol as needed for his symptoms. Patient to follow up as needed if symptoms persist or worsen. Plan I discussed the patient's current medical management and confirmed his hypertension is well-controlled. We reviewed a prior recommendation from a conservation technician to start a statin, and I explained that for primary prevention in a patient without other major risk factors like diabetes or smoking, it is not strictly necessary, aligning with his previous PCP's advice. I advised him to continue Tylenol for his arthritis pain, as it is effective for him. I recommended he complete fasting lab work, as it has been over a year, to check baseline counts, organ function, and cholesterol levels. I informed him that if lab results are normal, he will receive a letter, but I will call him to discuss any abnormalities. We scheduled a follow-up visit in six months, and I confirmed that I will be his ongoing provider. Orders: Orders Comprehensive Met. Panel 06/19/25 I10 - Essential (primary) hypertension, Z79.899 - Other fci (current) drug therapy Patient Instructions: - Please go to a lab to have blood work done. - You should not eat or drink anything except water before your blood test. - Continue taking your current blood pressure medications as you have been. - You can continue to use Tylenol as needed for your arthritis pain. - You do not need any medication refills at this time. - Please schedule a follow-up appointment with me in about six months. - If you need anything or have any problems before your next appointment, please call the office.
--- OUTSIDE RECORDS SUMMARY | 2025-06-19 17:52 | XMS_ITS | Patient Health Record ---
Author Organization [facility] Address [address] [place] [address] Care Team Providers Care Certified Phlebotomist Name Role Phone Cady (RETIRED) Salo CUELLAR Primary Care Provide Drake Carpenter Unavailable [phone] Allergies Allergen (clinical drug ingredient) Drug/Non Drug Allergy documented on EMR Reaction Allergy Type Onset Date Status acetaminophen / oxycodone Percocet Unknown Drug Allergy Active codeine Codeine Sulfate Unknown Drug Allergy A ctive Reason For Referral No Information Medications Medication SIG (Take, Route, Fr equency, Duration) Notes Start Date End Date Status Lisinopril Active Atenolol Active Catapres Active Citalopram Hydrobromide Active Immunizations Vaccine Route Administration Date Status Comme nts Influenza Unknown 04/15/2019 Administered Social History Tobacco Use: Social History Observation Description Date Details (start date - stop date) Former Smoker NA - NA Tobacco Use/Smoking Question Answer Notes Patient is a former smoker When did you stop smoking? 37 years ago How long has it been since you last smoked? > 10 years Alcohol Screen Question Answer Notes Did you have a drink contain ing alcohol in the past year? Yes How often did you have a dri nk containing alcohol in the past year? 2 to 4 times a month (2 points) How many drinks did you have on a typical day when you were drinking in the past year? 1 or 2 drinks (0 point) How often did you have 6 or more drinks on one occasion in the past year? Never (0 point) Points 2 Interpretation Negative Section Notes: Nonsmoker; no sig alcohol Problems Problem Type SNOMED Code ICD Code Onset Dates Problem Status W/U Status Risk Notes Problem Screening for malignant neoplasm of colon (356446956) Encounter for screening for malignant neoplasm of colon (Z12.11) Active confirmed Problem Preprocedural examination (454975642527929) Preprocedural examination (Z01.818) Active confirmed Plan Of Treatment Future Test Test Name Order Date COLONOSCOPY 05/01/2020 Insurance Providers Payer Name Payer Address Payer Phone Subscriber Number Group Number Insured Name Patient Relationship to Insured Coverage Start Date Coverage End Date [facility] [employer] [address] [place] [address] [id number] SANTIAGO MORA Self - patient is the insured Medical (General) History Medical History History ICD Code Hypertension Denies [place],DM,CVA,Lung disease,renal dise ase Depression Neg. colonoscopies in 2004 and 01/2010 Surgical History Surgery Date(Month/Year) Right knee surgery Cholecystectomy Appy
== END 2025-06-19 15:25 | disposition home or self-care (01) ==
LOC: HO.HMCHD 14:48
PROVIDERS: PCP Internal Medicine; Visit Provider Physician Assistant Medical
DX: I10 Essential (primary) hypertension (principal); E78.5 Hyperlipidemia, unspecified; N52.9 Male erectile dysfunction, unspecified; M19.90 Unspecified osteoarthritis, unspecified site

== ENCOUNTER → 2025-06-19 14:47 | Outpatient (BNVA) | payer MEDICARE, SELFPAY | PROVIDERS: PCP Internal Medicine; Visit Provider Physician Assistant Medical | DX: Z76.89 Persons encountering health services in other specified circumstances (principal); I10 Essential (primary) hypertension; E78.5 Hyperlipidemia, unspecified; N52.9 Male erectile dysfunction, unspecified; M19.90 Unspecified osteoarthritis, unspecified site; Z13.31 Encounter for screening for depression; Z13.39 Encounter for screening examination for other mental health and behavioral disorders | CPT/HCPCS: 96127; 99212 ==

== ENCOUNTER 2025-07-26 08:53 | Outpatient (REF) | payer MEDICARE, SELFPAY ==
[2025-07-26 14:25] LABS: Alanine Aminotransferase 21 U/L (0-40); Albumin Level 4.4 g/dL (3.5-5.0); Alkaline Phosphatase 48 U/L (39-117); Anion Gap 10 (12-20); Aspartate Amino Transferase 31 U/L (5-37); Blood Urea Nitrogen 16 mg/dL (9-16); Calcium 9.9 mg/dL (8.4-10.2); Carbon Dioxide 27 mmol/L (22-29); Chloride 108 mmol/L (96-108); Estimated Glomerular Filt Rate > 60; Potassium 4.9 mmol/L (3.3-5.1); Sodium 140 mmol/L (135-145); Total Protein 7.0 g/dL (6.5-8.0)
== END 2025-07-26 08:54 | disposition home or self-care (01) ==
LOC: HO.HMGCLDS 08:53
PROVIDERS: PCP Physician Assistant Medical; Visit Provider Physician Assistant Medical
DX: I10 Essential (primary) hypertension (principal); Z79.899 Other long term (current) drug therapy
CPT/HCPCS: 36415; 80053